=== PATIENT | male | born 1980 | race Caucasian/White ===

== ENCOUNTER 2020-02-15 00:41 | Emergency (ER) | payer OTHER ==
[~2020-02-15] VITALS: Ht 167.6 cm; Wt 77.1 kg
[2020-02-15] MEDS ORDERED: LEVEMIR100 UNIT/1 SUBQ (00:50)
[2020-02-15] MEDS ORDERED: NOVOLOG100 UNIT/M SUBQ (00:51)
[2020-02-15 01:08] LABS: ABSOLUTE BASOPHILS 0.1 thou/uL (0.0-0.2); ABSOLUTE EOSINOPHILS 0.1 thou/uL (0.0-0.7); ABSOLUTE LYMPHOCYTES 2.6 thou/uL (0.8-5.3); ABSOLUTE MONOCYTES 0.5 thou/uL (0.0-1.2); BASOPHILS 1.1 %; EOSINOPHILS 1.3 %; HEMATOCRIT 42.1 % (42.0-52.0); HEMOGLOBIN 13.8 gm/dL (14.0-18.0); LYMPHOCYTES 31.1 %; MCH 25.5 pg (26.0-34.0); MCHC 32.7 g/dL (28.0-37.0); MCV 77.9 fL (80.0-100.0); MPV 8.8 fl. (7.2-11.1); NUCLEATED RBCS 0 /100WBC; PLATELET COUNT* 247 thou/uL (150-400); POLYS 60.5 %; RDW-CV 15.2 % (10.5-14.5); WBC 8.3 thou/uL (4.0-11.0)
[2020-02-15 01:13] LABS: CALCIUM 9.2 mg/dL (8.5-10.1); CREATININE 0.9 mg/dL (0.6-1.3); POTASSIUM 3.4 mmol/L (3.5-5.1)
[2020-02-15 01:23] LABS: ALBUMIN 4.1 g/dL (3.4-5.0); MAGNESIUM 1.9 mg/dL (1.8-2.4); TOTAL BILIRUBIN 0.3 mg/dL (<0.1-1.0); TOTAL PROTEIN 8.2 g/dL (6.4-8.2)
[2020-02-15 01:25] LABS: PROTIME 10.7 Seconds (9.20-11.50)
[2020-02-15 01:48] LABS: URINE BILIRUBIN NEGATIVE (Negative); URINE BLOOD NEGATIVE (Negative); URINE CLARITY CLEAR; URINE COLOR YELLOW; URINE GLUCOSE-RANDOM 3+ (Negative); URINE KETONES 1+ (Negative); URINE LEUKOCYTES-REFLEX NEGATIVE (Negative); URINE NITRITE-REFLEX NEGATIVE (Negative); URINE PROTEIN NEGATIVE (Negative); URINE SPECIFIC GRAVITY 1.015 (1.005-1.030); URINE UROBILINOGEN 0.2 E.U./dl (0.2-1.0)
[2020-02-15 01:56] LABS: AMP/METHAMP Negative (Negative); BARBITURATES Negative (Negative); BENZODIAZEPINES Negative (Negative); COCAINE Negative (Negative); METHADONE Negative (Negative); OPIATES Negative (Negative); PCP Negative (Negative); THC POSITIVE (Negative)
[2020-02-15] MEDS ORDERED: ZOFRAN ODT4 MG PO (04:37)
[2020-02-15 04:46] VITALS: BP 110/60
--- NOTE | 2020-02-15 13:05 | EKG ---
[place] [address] ELECTROCARDIOGRAM REPORT Name: TEMO NASH Room: [facility]#: [id number] Admission: 02/15/20 Attend Phys: Discharge: 02/15/20 Date of : 76 Date of Service: 02/15/2040 Report #: [id number] THIS REPORT FOR: //name// [facility] ED Test Date: 2020-02-15 Test Time: 00:41:28 Pat Name: TEMO NASH Department: Room: Gender: [employer] Regist[employer]: [place] : 1980 Requested By: Laura Casarez Order Number: [id number] MD: Min Mclaughlin Measurements Intervals [place] Rate: 84 P: 60 LA: 171 QRS: 68 QRSD: 75 T: 22 QT: 343 QTc: 406 Interpretive Statements Sinus rhythm with sinus arrhythmia No previous ECG available for comparison Electronically Signed On 02-15-2020 13:05:37 CDT by Min Mclaughlin [email or web address] <ELECTRONICALLY SIGNED> By: Min Mclaughlin MD, [facility] 02/15/20 1305 Min Mclaughlin MD, FACC /EPI
== END 2020-02-15 04:47 | disposition home or self-care (01) ==
LOC: M.ERS 00:41
PROVIDERS: Emergency Medicine
DX: R11.10 Vomiting, unspecified (principal); R10.13 Epigastric pain; Z88.0 Allergy status to penicillin